=== PATIENT | female | born 1950 | race Two or more races ===

== ENCOUNTER 2020-09-11 04:43 | Emergency (ER) | payer OTHER, MEDICAID ==
[~2020-09-11] VITALS: Ht 162.6 cm; Wt 77.1 kg
[2020-09-11] MEDS ORDERED: SODIUM CHLORIDE 0.9% 1,000 ML IV ONE (05:45)
[2020-09-11 07:31] LABS: Alanine Aminotransferase 70 U/L (13-56); Albumin 3.6 g/dL (3.4-5.0); Anion Gap 10 (5-15); Aspartate Aminotransferase 193 U/L (15-37); BUN/Creatinine Ratio 19.4; Blood Urea Nitrogen 25 mg/dL (7-18); Calcium 9.1 mg/dL (8.5-10.1); Carbon Dioxide 27 mmol/L (21-32); Chloride 97 mmol/L (98-107); GFR African American 52 mL/min; GFR Non-African American 43 mL/min; Glucose 144 mg/dL (74-106); Potassium 3.6 mmol/L (3.5-5.1); Sodium 134 mmol/L (136-145)
[2020-09-11 07:35] LABS: Alkaline Phosphatase 161 U/L (45-117)
[2020-09-11 08:27] LABS: Basophils # (auto) 0.1 10 ^3/uL (0-0.2); Basophils % (auto) 0.4 % (0.0-2.0); Eosinophils # (auto) 0 10 ^3/uL (0-0.8); Hematocrit 35.7 % (36.0-46.0); Hemoglobin 11.8 g/dL (12.2-16.2); Lymphocytes # (auto) 0.9 10 ^3/uL (0.4-5.4); Lymphocytes % (auto) 7.3 % (10.0-50.0); Mean Corpuscular Hemoglobin 27.6 pg (28.0-32.0); Mean Corpuscular Hgb Conc. 33.2 g/dL (32.0-36.0); Mean Corpuscular Volume 83.3 fL (80.0-100.0); Monocytes # (auto) 0.9 10 ^3/uL (0-1.3); Monocytes % (auto) 7.3 % (0.0-12.0); Neutrophils # (auto) 10.5 10 ^3/uL (1.6-8.6); Nucleated Red Blood Cells % 0.1 %; Platelet Count (auto) 293 10^3/uL (140-450); Red Blood Cells 4.28 10^6/uL (4.0-5.20); Red Cell Distribution Width 16.1 % (11.8-14.3); White Blood Cell 12.4 10^3/uL (4.4-10.8)
[2020-09-11 09:09] LABS: Urine Bacteria NONE SEEN /hpf (None Seen); Urine Blood Negative /uL (Negative); Urine Hyaline Cast MOD /lpf (0 - 2); Urine Specific Gravity 1.015 (1.001-1.035); Urine WBC 3 /hpf (0 - 5)
[2020-09-11 11:02] VITALS: BP 143/53
== END 2020-09-11 12:29 | disposition short-term general hospital (02) ==
LOC: ER 04:43
DX: I81 Portal vein thrombosis (principal); E11.9 Type 2 diabetes mellitus without complications; I10 Essential (primary) hypertension; Z20.822 Contact with and (suspected) exposure to COVID-19
CPT/HCPCS: 36415; 71045; 74176; 80053; 81001; 82962; 84484; 85025; 87426; 96360; 96361; 99285; J7030

== ENCOUNTER 2020-11-25 18:30 | Emergency (ER) | payer OTHER, MEDICAID ==
[~2020-11-25] VITALS: Ht 157.5 cm; Wt 72.6 kg
[2020-11-25] MEDS ORDERED: SODIUM CHLORIDE 0.9% 1,000 ML IV ONE (18:45)
[2020-11-25] MEDS ORDERED: MORPHINE SULFATE 4 MG/ML SYR/VIAL IV ONE (18:45)
[2020-11-25] MEDS ORDERED: ONDANSETRON HCL 4 MG/2 ML VIAL IV ONE (18:45)
[2020-11-25] MEDS ORDERED: PANTOPRAZOLE 40 MG/10 ML VIAL INJ IV ONE (18:45)
[2020-11-25 19:36] LABS: Basophils # (auto) 0.1 10 ^3/uL (0-0.2); Basophils % (auto) 0.8 % (0.0-2.0); Eosinophils # (auto) 0 10 ^3/uL (0-0.8); Eosinophils % (auto) 0.3 % (0.0-7.0); Hematocrit 35.9 % (36.0-46.0); Hemoglobin 11.8 g/dL (12.2-16.2); Lymphocytes # (auto) 5.2 10 ^3/uL (0.4-5.4); Mean Corpuscular Hemoglobin 27.1 pg (28.0-32.0); Mean Corpuscular Hgb Conc. 32.8 g/dL (32.0-36.0); Mean Corpuscular Volume 82.6 fL (80.0-100.0); Monocytes # (auto) 0.5 10 ^3/uL (0-1.3); Monocytes % (auto) 5.6 % (0.0-12.0); Neutrophils # (auto) 3.3 10 ^3/uL (1.6-8.6); Neutrophils % (auto) 35.7 % (37.0-80.0); Red Blood Cells 4.35 10^6/uL (4.0-5.20); White Blood Cell 9.1 10^3/uL (4.4-10.8)
[2020-11-25 19:42] LABS: Lymphocytes % (auto) 57.6 % (10.0-50.0)
[2020-11-25 19:43] LABS: INR 2.43 (0.9-1.15)
[2020-11-25 19:48] LABS: Albumin 2.2 g/dL (3.4-5.0); Anion Gap 17 (5-15); Calcium 8.2 mg/dL (8.5-10.1); Carbon Dioxide 13 mmol/L (21-32); Chloride 111 mmol/L (98-107); Glucose 61 mg/dL (74-106); Lipase 155 U/L (73-393); Magnesium 2.4 mg/dL (1.6-2.6); Potassium 3.7 mmol/L (3.5-5.1); Sodium 141 mmol/L (136-145)
[2020-11-25 19:59] LABS: Alanine Aminotransferase 79 U/L (13-56); Alkaline Phosphatase 472 U/L (45-117); Aspartate Aminotransferase 244 U/L (15-37); BUN/Creatinine Ratio 22.5; Bilirubin, Total 1.4 mg/dL (0.2-1.0); GFR African American 10 mL/min; GFR Non-African American 8 mL/min; Total Protein 6.9 g/dL (6.4-8.2)
[2020-11-25 20:11] LABS: Blood Urea Nitrogen 127 mg/dL (7-18)
[2020-11-26] MEDS ORDERED: DEXTROSE (50%) 50ML SYRG IV ONE (01:00)
[2020-11-26] MEDS ORDERED: SODIUM CHLORIDE 0.9% 1,000 ML IV ONE (02:30)
[2020-11-26] MEDS ORDERED: ALBUMIN 5% 50 ML IV ONE (03:30)
[2020-11-26] MEDS ORDERED: HYDROcodone-ACET 10/325MG TAB PO ONE (07:45)
[2020-11-26 09:59] VITALS: BP 105/45
== END 2020-11-26 10:24 ==
LOC: EDBD 18:30 → ER 18:34
DX: N19 Unspecified kidney failure (principal); E79.0 Hyperuricemia without signs of inflammatory arthritis and tophaceous disease; E86.1 Hypovolemia; E87.2 Acidosis; Z20.822 Contact with and (suspected) exposure to COVID-19
CPT/HCPCS: 36415; 36600; 71045; 74176; 80053; 82140; 82805; 82962; 83605; 83690; 83735; 84484; 85025; 85610; 85730; 87040; 87426; 93005; 96361; 96365; 96375; 99285; C9113; J2405; J7030; J7042; P9041